=== PATIENT | female | born 1980 | race Caucasian/White ===

== ENCOUNTER 2018-08-08 09:03 | Outpatient (REF) | payer BC, SELFPAY ==
[2018-08-08 22:42] LABS: HCT 43.8 % (36.0-46.0); HGB 14.7 g/dL (12.0-15.5); Mean Corp. HGB Concentration 33.6 g/dL (32.0-36.0); Mean Corpuscular Hemoglobin 30.7 pg (27.0-33.0); Mean Corpuscular Volume 91.4 fL (80-95); Mean Platelet Volume 9.9 fL (8.0-11.0); Platelet Count 228 x1000/uL (130-400); RBC 4.79 m/cumm (4.00-5.20); RBC Distribution Width 12.8 % (11.7-14.6); White Blood Cell Count 5.42 k/cumm (4.4-10.8)
[2018-08-08 22:46] LABS: Iron 133 ug/dL (50-175); Total Iron Binding Capacity 354 ug/dL (250-450); Transferrin Sat 38 % (15-50)
[2018-08-08 23:16] LABS: Anion Gap 10.7 mmol/L (3-11); BUN 13 mg/dL (7-18); CO2 27.3 mmol/L (21.0-32.0); CREATININE 0.72 mg/dL (0.55-1.02); Calcium 8.5 mg/dL (8.5-10.1); Calculated LDL 177; Chloride 102 mmol/L (98-107); Cholesterol 238 mg/dL (50-200); Ferritin 152 ng/mL (8-388); Glucose 86 mg/dL (70-100); HDL Cholesterol 51 mg/dL (40-60); Magnesium 1.8 mg/dL (1.8-2.4); Potassium 3.8 mmol/L (3.5-5.1); Sodium 140 mmol/L (136-145); Triglyceride 52 mg/dL (30-150); Vitamin B12 405 pg/mL (193-986)
[2018-08-10 06:29] LABS: Vitamin D 25 Total 41.1 ng/ml (30-100)
[2018-08-10 12:09] LABS: HIV-1/2 Ag & Ab Screen Negative (NEGAT)
[2018-08-11 09:08] LABS: Thiamine (Vitamin B1), WB 147 nmol/L (70-180)
== END 2018-08-08 09:23 ==
LOC: NCHCN 09:03
PROVIDERS: PCP Family Medicine; Visit Provider Registered Nurse
DX: Z00.00 Encounter for general adult medical examination without abnormal findings (principal); R53.83 Other fatigue; N39.46 Mixed incontinence; Z90.3 Acquired absence of stomach [part of]; Z11.4 Encounter for screening for human immunodeficiency virus [HIV]
CPT/HCPCS: 80048; 80061; 82306; 83721; 85027; 87389; 82607; 82728; 83540; 83550; 83735; 84425

== ENCOUNTER 2018-09-29 12:31 | Outpatient (REF) | payer BC, SELFPAY ==
[2018-09-29 21:30] LABS: Mono Screening Negative (Negative)
[2018-10-02 12:28] LABS: CMV IgG Antibody Negative
== END 2018-09-29 12:51 ==
LOC: NCHCN 12:31
PROVIDERS: PCP Family Medicine; Visit Provider Nurse Practitioner Family
DX: R50.9 Fever, unspecified (principal)
CPT/HCPCS: 86308; 86644